=== PATIENT | female | born 1955 | race Caucasian/White ===

== ENCOUNTER 2018-07-02 17:01 | Outpatient (REF) | payer OTHER, SELFPAY ==
[2018-07-02 22:48] LABS: Cholesterol 218 mg/dL (50-200); HDL Cholesterol 109 mg/dL (40-60); LDL CHOLESTEROL 87 mg/dL (<100); Triglyceride 49 mg/dL (30-150)
[2018-07-04 11:20] LABS: Hepatitis C Ab w Rflx HCV PCR Negative (NEGAT)
== END 2018-07-02 17:21 ==
LOC: NCHCN 17:01
PROVIDERS: PCP Surgery; Visit Provider Nurse Practitioner Family
DX: Z00.00 Encounter for general adult medical examination without abnormal findings (principal); F41.8 Other specified anxiety disorders; N95.1 Menopausal and female climacteric states; E66.9 Obesity, unspecified; Z11.59 Encounter for screening for other viral diseases
CPT/HCPCS: 80061; 83721; 86803

== ENCOUNTER 2018-07-25 10:43 | Outpatient (CLI) | payer OTHER, SELFPAY ==
--- NOTE | 2018-07-25 16:04 | DI.MAMMO_ITS ---
SYMPTOM/DIAGNOSIS: SCREENING, Z12.39 MAMMOGRAMS: Mammograms were interpreted according to the usual protocol including computer analysis with CAD system, tomosynthesis and C view imaging. Comparison with prior examination. Breast density B. No suspicious masses or microcalcifications are seen. There is no definite evidence of malignancy. IMPRESSION: Negative mammogram. Routine screening is recommended. Category I. MQSA ASSESSMENT OF FINDINGS: Negative. Category 1. Patient will receive a letter notifying them of these results. BI-RADS category B. There are scattered areas of fibroglandular density.
== END 2018-07-25 11:03 ==
PROVIDERS: PCP Nurse Practitioner Family; Visit Provider Nurse Practitioner Family
DX: Z12.31 Encounter for screening mammogram for malignant neoplasm of breast (principal)
CPT/HCPCS: 77063; 77067

== ENCOUNTER 2019-07-29 18:50 | Outpatient (REF) | payer OTHER, SELFPAY ==
--- NOTE | 2019-07-29 17:00 | PAPFT_PTH ---
PATIENT: Claribel Restrepo [id number] AGE/SX: 64/F ROOM: RE07/29/[address]: Joy Capellan : 1955 BED: DIS: 07/29/2019 SPEC #: [id number] RECD: 07/30/19 12:54 STATUS: MANE RERubio #: [id number] ALISIA: 07/29/19 17:[address]: Joy Capellan DEPT: [facility] Cytology RECD BY: Adelina Sarah Tissues: 1 - CX/ENDOCX FOR PAP SMEARS Procedures: PAP THIN PREP/UVM Screening HPV DNA PROBE Comments: [id number]
[2019-07-29 21:38] LABS: Hemoglobin A1C 6.2 % (3.8-5.6)
[2019-07-29 21:46] LABS: Calculated LDL 109 mg/dL (<100); Cholesterol 214 mg/dL (<200); HDL Cholesterol 90 mg/dL (40-60); TSH (W/Ref FT4) 1.27 uIU/mL (0.36-3.74); Triglyceride 76 mg/dL (<150)
[2019-07-31 10:40] LABS: HIV-1/2 Ag & Ab Screen Negative (Negative)
== END 2019-07-29 19:10 ==
LOC: NCHCN 18:50
PROVIDERS: PCP Nurse Practitioner Family; Visit Provider Nurse Practitioner Family
DX: Z00.00 Encounter for general adult medical examination without abnormal findings (principal); N95.1 Menopausal and female climacteric states; R06.83 Snoring; M54.5 Low back pain; M19.049 Primary osteoarthritis, unspecified hand; E66.9 Obesity, unspecified; M72.2 Plantar fascial fibromatosis; Z11.4 Encounter for screening for human immunodeficiency virus [HIV]; Z12.4 Encounter for screening for malignant neoplasm of cervix; Z11.51 Encounter for screening for human papillomavirus (HPV); Z01.419 Encounter for gynecological examination (general) (routine) without abnormal findings
CPT/HCPCS: 80061; 87389; 88142; 83036; 84443; 87624

== ENCOUNTER 2020-03-09 01:11 | Outpatient (CLI) | payer OTHER, SELFPAY ==
--- NOTE | 2020-03-09 16:13 | DI.MAMMO_ITS ---
EXAM: MG MAMMO SCREENING CLINICAL HISTORY: SCREENING, Z12.39 TECHNIQUE: Bilateral full field digital CC and MLO mammographic images were obtained with 3D tomosyn thesis and utilizing computer aided detection (CAD). COMPARISON: Available for comparison. FINDINGS: Masses/Architectural Distortion: There is a new nodular density in the inferior left breast on the ML O view. Microcalcifications: No suspicious pleomorphic-type are seen. Skin Thickening/Nipple Retraction: None. IMPRESSION: 1. New nodular density inferior left breast on the MLO view. 2. This area should be further evaluated with a spot compression view. Ultrasound may be indicated a t that time. BI-RADS Category 0 - Assessment Incomplete: Need additional imaging evaluation Breast Density - Category B - Scattered areas of fibroglandular density Breast density category C or D implies that the patient has dense breast tissue. Dense breast tissue is very common and is not abnormal but dense breast tissue can make it harder to find cancer on a ma mmogram. Also, dense breast tissue may increase their breast cancer risk. This information about the result of the mammogram report was provided to the patient to raise their awareness. Use this report when you speak with the patient about their risks for breast cancer, which includes their family hist ory. At that time, you may recommend for more screening tests (Ultrasound or MRI) as they might be us eful based on their risk. A negative radiographic report should not delay biopsy if a dominant or clinically suspicious mass is present. Up to ten percent of cancers are not identified on mammography. A negative report may reinforce clinical impression. Adenosis and dense breasts may obscure an underlying neoplasm. False positive reports average 6 to 10%. Patient will receive a letter notifying them of these results.
== END 2020-03-09 01:31 ==
PROVIDERS: PCP Nurse Practitioner Family; Visit Provider Nurse Practitioner Family
DX: Z12.31 Encounter for screening mammogram for malignant neoplasm of breast (principal); R92.8 Other abnormal and inconclusive findings on diagnostic imaging of breast
CPT/HCPCS: 77063; 77067

== ENCOUNTER 2020-03-19 01:41 | Outpatient (CLI) | payer OTHER, SELFPAY ==
--- NOTE | 2020-03-19 | DI.US_ITS ---
EXAM: US BREAST LT LIMITED CLINICAL HISTORY: LEFT breast nodule. TECHNIQUE: Limited ultrasound of the left breast was performed. COMPARISON: Prior mammograms were reviewed. FINDINGS: There is no ultrasound finding left breast correspond to the small nodule seen inferiorly on the rece nt screening mammogram. Therefore is most probably benign tremor lymph node. IMPRESSION: No significant focal ultrasound findings, this implying that the nodule on the mammogram is probably benign lymph node. Appropriate follow-up is repeat left breast mammogram 6 months from now. BI-RADS Category 3 - 6 month - Probably Benign Finding: Recommend follow-up mammography in 6 months Breast Density - Category B - Scattered areas of fibroglandular density Breast density Category C or D implies that the patient has dense breast tissue. Dense breast tissue can make it harder to find cancer on a mammogram. Dense breast tissue is also associated with an incr eased risk of breast cancer. This information about the result of the mammogram report was provided to the patient to raise their awareness. Use this report when you speak with the patient about their risks for breast cancer, which includes their family history. At that time, you may recommend additional screening tests (Ultrasoun d or MRI) as these tests may add significant information. A negative radiographic report should not delay biopsy if a dominant or clinically suspicious mass is present. Up to ten percent of cancers are not identified on mammography. A negative report may reinforce clinical impression. Adenosis and dense breasts may obscure an underlying neoplasm. False positive reports average 6 to 10%. Patient will receive a letter notifying them of these results.
--- NOTE | 2020-03-19 | DI.MAMMO_ITS ---
EXAM: MG MAMMO SCREEN CALL BACK UNI-LEFT and left breast ultrasound CLINICAL HISTORY: F/U MAMMO, NEW NODULAR DENSITY LT BREAST. TECHNIQUE: Spot-compression MLO 3D view of the left breast was performed, this pursuant to finding o n screening mammogram 03/09/2020. We also performed left breast ultrasound. COMPARISON: Prior mammograms dating back to 2011, the most recent being 03/09/2020. FINDINGS: Spot-compression 3D view does not dissipate the recently described nodule. However, it has appearanc e of a probable benign lymph node. This was followed by targeted left breast ultrasound which revealed no evidence of solid or significa nt cystic lesion. IMPRESSION: Left breast nodule, not evident on ultrasound. I feel this is probably a benign intramammary lymph n ode. Appropriate follow-up is repeat left mammogram in 6 months, earlier if clinically indicated. BI-RADS Category 3 - 3 month - Probably Benign Finding: Recommend follow-up mammography in 3 months Breast Density - Category B - Scattered areas of fibroglandular density Breast density Category C or D implies that the patient has dense breast tissue. Dense breast tissue can make it harder to find cancer on a mammogram. Dense breast tissue is also associated with an incr eased risk of breast cancer. This information about the result of the mammogram report was provided to the patient to raise their awareness. Use this report when you speak with the patient about their risks for breast cancer, which includes their family history. At that time, you may recommend additional screening tests (Ultrasoun d or MRI) as these tests may add significant information. A negative radiographic report should not delay biopsy if a dominant or clinically suspicious mass is present. Up to ten percent of cancers are not identified on mammography. A negative report may reinforce clinical impression. Adenosis and dense breasts may obscure an underlying neoplasm. False positive reports average 6 to 10%. Patient will receive a letter notifying them of these results.
== END 2020-03-19 02:01 ==
PROVIDERS: PCP Nurse Practitioner Family; Visit Provider Nurse Practitioner Family
DX: R92.8 Other abnormal and inconclusive findings on diagnostic imaging of breast (principal)
CPT/HCPCS: 76642; 77063; 77067

== ENCOUNTER 2020-09-17 03:34 | Outpatient (CLI) | payer OTHER, SELFPAY ==
--- NOTE | 2020-09-17 15:06 | DI.MAMMO_ITS ---
Exam(s) MG MAMMO DIAGNOSTIC UNI EXAM: MG MAMMO DIAGNOSTIC UNI-LEFT CLINICAL HISTORY: DIAGNOSTIC, 6 MO F/U, F/U ABNL MAMMO, R92.8. TECHNIQUE: Unilateral spot mammographic images were obtained with 3D Tomosynthesistechnique and util izing computer aided detection (CAD). COMPARISON: Prior mammograms dating back to 2011, the most recent being February 2020. FINDINGS: This patient has now returned for follow-up of the cysts nodule seen inferiorly in the left breast on the mammogram February 2020. This was negative on ultrasound examination at that time. There is left breast mammogram again reveals the previously described nodule. It appears slightly sm aller possibly projectional. It exhibits a small notch and is therefore probably benign lymph node. No other significant mammographic findings Did not feel was necessary to repeat ultrasound examination. IMPRESSION: Stable benign finding in the left breast. Appropriate follow-up is to keep this patient yearly mammogram schedule, this implying the next [facility] mammogram would be in February 2021, with earlier imaging if a self detected breast change is not ed.. The patient was informed of the findings and follow-up recommendations prior to leaving the [facility] today. BI-RADS Category 2 - Benign Findings Breast Density - Category B - Scattered areas of fibroglandular density Breast density Category C or D implies that the patient has dense breast tissue. Dense breast tissue can make it harder to find cancer on a mammogram. Dense breast tissue is also associated with an incr eased risk of breast cancer. This information about the result of the mammogram report was provided to the patient to raise their awareness. Use this report when you speak with the patient about their risks for breast cancer, which includes their family history. At that time, you may recommend additional screening tests (Ultrasoun d or MRI) as these tests may add significant information. A negative radiographic report should not delay biopsy if a dominant or clinically suspicious mass is present. Up to ten percent of cancers are not identified on mammography. A negative report may reinforce clinical impression. Adenosis and dense breasts may obscure an underlying neoplasm. False positive reports average 6 to 10%. Patient will receive a letter notifying them of these results.
== END 2020-09-17 03:54 ==
PROVIDERS: PCP Nurse Practitioner Family; Visit Provider Nurse Practitioner Family
DX: R92.8 Other abnormal and inconclusive findings on diagnostic imaging of breast (principal)
CPT/HCPCS: 77061; 77065; G0279

== ENCOUNTER 2021-03-01 17:10 | Outpatient (REF) | payer OTHER, SELFPAY ==
[2021-03-02 09:24] LABS: COVID-19 RT-PCR UVMMC Result Positive (Negative)
== END 2021-03-01 17:11 | disposition home or self-care (01) ==
LOC: NCHCN 17:10
PROVIDERS: PCP Nurse Practitioner Family; Visit Provider Nurse Practitioner Family
DX: Z20.822 Contact with and (suspected) exposure to COVID-19 (principal)
CPT/HCPCS: U0003

== ENCOUNTER 2021-09-03 00:42 | Outpatient (CLI) | payer OTHER, SELFPAY ==
--- NOTE | 2021-09-03 | DI.RAD_ITS ---
Exam(s) XR HAND LT COMPLETE EXAM: XR HAND LT COMPLETE CLINICAL HISTORY: LT THUMB PAIN, M79.645. TECHNIQUE: 2D digital imaging was performed of the left hand. Three views were obtained. AP, later al and oblique views were obtained. COMPARISON: No exams were available for comparison FINDINGS: BONES: No acute fracture is present. No bony destructive lesion is seen. JOINTS: No dislocation present. Hypertrophic changes are seen at the interphalangeal joint of the heriberto mb and fingers. The metacarpophalangeal joints are well maintained.. SOFT TISSUE: Normal. IMPRESSION: Moderate degenerative changes of the hand. DATA REPOSITORY: RADIATION DOSE DELIVERED:
--- OUTSIDE RECORDS SUMMARY | 2021-09-03 00:46 | XMS_ITS ---
:1955 Author Care Team Providers Name Role Phone DR. KAILASH SALAZAR Primary Care Provider [phone] DR. KAILASH SALAZAR Referring Provider [phone] Allergies Code Code System Name Reaction Severity Status Onset NKDA ? Medications Name Status Start Date Stop Date ? ? Aleve 220 mg tablet Active ? Not availabl e Take 1 tablet every 12 hours by oral route as needed. sertraline 100 mg tablet Active ? Not alva ilable Take 1 tablet every day by oral route. Problems Name Status Onset Date Source ? Obesity Active 10/13/2016 ? Depressive Disorder Active 10/13/2016 ? Skin Lesion Active 10/13/2016 ? Low Back Pain Active 10/13/2016 ? Snoring Active 10/13/2016 ? Bunion Active 10/13/2016 ? 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 Procedures Date Name Performed by ? 10/20/2016 XR, Foot, 3 or More View DO Not Use [facility] [address], [place] [id number] (Work Place) 12/08/2016 XR, Foot DO Not Use [facility] [address], [place] [id number] (Work Place) Results Lab Results None recorded. Past Encounters None recorded. Social History Tobacco Smoking Status Never Smoker Notes: 12/29/16 Vaccine List Vaccine Type Tdap 04/02/2010 Plan of Care Reminders Provider Appointments None recorded. ? ? Lab None recorded. ? ? Referral None recorded. ? ? Procedures None recorded. ? ? Surgeries None recorded. ? ? Imaging None recorded. ? ? Vitals 02/22/2017 04:15PM FOLLOW UP Weight Blood Pressure 77.11 kg 128/62 mm[Hg] 01/19/2017 01:15PM PODIATRY POST-OP 1 Weight Blood Pressure 77.11 kg 116/68 mm[Hg] 12/29/2016 09:45AM FOLLOW UP Weight Blood Pressure 77.11 kg 124/62 mm[Hg] 12/08/2016 01:15PM PODIATRY POST OP 2 Weight Blood Pressure 77.11 kg 104/54 mm[Hg] 12/01/2016 09:45AM PODIATRY POST-OP 1 Blood Pressure 124/64 mm[Hg] 11/09/2016 04:00PM FOLLOW UP Weight Blood Pressure 77.11 kg 120/64 mm[Hg] 10/20/2016 04:15PM NEW PATIENT Weight Blood Pressure 77.11 kg 124/62 mm[Hg]
--- OUTSIDE RECORDS SUMMARY | 2021-09-03 00:46 | XMS_ITS | Clinical Summary ---
:1955 Author Organization [facility] Address [address] [place] [address] Care Team Providers Name Role Phone Mirian Olivares BROADCAST NEWS PRODUCER Primary Care Provider Social History Tobacco Use Types Packs/Day Years Used Date Never Assessed Sex Assigned at Date Recorded Not on file Plan of Treatment Health Maintenance Due Date Last Done Comments Fall Risk Screening 06/09/2020 Care Teams Cartridge Maker Relationship Specialty Start Date End Date Mirian Olivares NP PCP - General 09/28/16
--- OUTSIDE RECORDS SUMMARY | 2021-09-03 00:47 | XMS_ITS | Encounter Summary ---
:1955 Author Organization [facility] Address [address] [place] [address] Care Team Providers Name Role Phone Unknown, Provider Primary Care Provider Encounter Details Date Type Department Care Team Description 09/26/2016 Hospital Encounter [facility] Unknown, Provider, [facility] [phone] [place] [address] (Work) [phone] Social History Tobacco Use Types Packs/Day Years Used Date Never Assessed Sex Assigned at Date Recorded Not on file documented as of this encounter Discharge Disposition Disposition Code Departure Means Destination Home or Self [facility] documented in this encounter Plan of Treatment Not on filedocumented as of this encounter Visit Diagnoses Not on filedocumented in this encounter Care Teams Banding Machine Operator Relationship Specialty Start Date End Date Unknown, Provider, PCP - General 01/02/15 09/27/16 documented as of this encounter
--- OUTSIDE RECORDS SUMMARY | 2021-09-03 00:47 | XMS_ITS | Encounter Summary ---
:1955 Author Organization [facility] Address [address] [place] [address] Care Team Providers Name Role Phone Unavailable Primary Care Provider Unavailable Encounter Details Date Type Department Care Team Description 09/12/2014 Results Only [facility] Niurka Mendez, [facility] [phone] [facility] [place] [address] (Wo rk) Social History Tobacco Use Types Packs/Day Years Used Date Never Assessed Sex Assigned at Date Recorded Not on file documented as of this encounter Plan of Treatment Not on filedocumented as of this encounter Procedures Procedure Name Priority Date/Time Associated Diagnosis Comme nts PAP TEST- RESULT Routine 09/12/2014 0:00 EDT Resu lts for this ONLY procedure are i n the results section. documented in this encounter Results PAP TEST- RESULT ONLY (09/12/2014 0:00 EDT) Pathology Report: CYTOPATHOLOGY REPORT [facility] Reports generated via electronic interface contain heather ginal data; SERVICES however they are lacking the format of the original re port. Caution should be taken when reading/interpreting unfo rmatted reports. Name: ? JESUS, THERE SA ? Accession #: ? [id number] ? : ? 1955 (Age: [age]) ??F ?Collect Date: ? 09/12/2014 ? Location: ? [facility] ? Receive Date: ? 09/16/19 15 ? Provider: NIURKA WINSLOW PLATE SHEAR OPERATOR Copy to: MARTITA RODRIGUES MD ? Final Report SPECIMEN ADEQUACY ? Satisfactory for Evaluation - transformation zone component present - scant squamous epithelial component secondary to exc essive inflammation GENERAL CATEGORIZATION ? Negative for Intraepithelial Lesion or Malignan cy ?? Last Menstrual Period: 2002 Specimen/Source: ??Pap Test, Cervix/Endocervix, ThinPr ep Imaging System with manual evaluation Document reviewed and electronically signed by: ? Armando Salazar, MOOKIE(ASCP) ? Report ??Date: 09/18/2014 09:49 HPV with Pap Test ? Date Ordered: ? 09/18/2014 ? Status: ?? Signed Out ?Date Complete: ? 09/22/2014 ? By: ??Sys tem Interface ? Date Reported: ? 09/22/2014 ? Interpretation RESULT: Negative for HPV. No E6 or E7 mRNA is detected from HPV types 16,18,31,3 3,35, 39,45,51,52,56,58,59,66, and 68 by compressor station engineer chief media roxanne amplification. Comments Document reviewed and electronically signed by: ? System Interface ? Report date: 09/22/2014 By the signature above, the attending physician certif ies that he/she has personally conducted a gross and/or microscopic examin ation of the described specimens and rendered or confirmed the above diagnosi s. End of Report Specimen Performing Organization Address City/State/ZIP Code Phon e Number [facility] [address] [place] [address] SERVICES documented in this encounter Visit Diagnoses Not on filedocumented in this encounter
--- OUTSIDE RECORDS SUMMARY | 2021-09-03 00:47 | XMS_ITS | Encounter Summary ---
:1955 Author Organization [facility] Address [address] [place] [address] Care Team Providers Name Role Phone Mirian Olivares COMPLIANCE ASSISTANT Primary Care Provider Encounter Details Date Type Department Care Team Description 07/30/2019 Lab Requisition [facility] Outr Resulting Lab, Pathology & Laboratory Provider [facility] [address] [phone] Social History Tobacco Use Types Packs/Day Years Used Date Never Assessed Sex Assigned at Date Recorded Not on file documented as of this encounter Plan of Treatment Not on filedocumented as of this encounter Procedures Procedure Name Priority Date/Time Associated Comments Diagnosis HIV 1/2 ANTIGEN AND Routine 07/29/2019 17:14 Resu lts for this ANTIBODY, 4TH EDT procedure are in GENERATION the results section. documented in this encounter Results HIV 1/2 ANTIGEN AND ANTIBODY, 4TH GENERATION (07/29/2019 17:14 EDT) HIV 1 and 2 Negative Negative [facility] Antibody/p24 Comment: LABORATORY Antigen, 4th SERVICES Generation If acute HIV-1 infection is suspected in a high risk ??patient, submit plasma specimen for HIV-1 RNA quantitation test. Fourth Generation assay performed on the Siemens [facility]. Specimen Blood - Venous blood (substance) Performing Organization Address City/State/ZIP Code Phon e Number [facility] [address] [place] [address] SERVICES documented in this encounter Visit Diagnoses Not on filedocumented in this encounter Additional Health Concerns Infection Onset Date Last Indicated Resolved Time COVID-19 03/01/2021 03/01/2021 03/21/2021 22:15 EST documented as of this encounter Care Teams Vp Clinical Relationship Specialty Start Date End Date Mirian Olivares NP PCP - General 09/28/16 documented as of this encounter
--- OUTSIDE RECORDS SUMMARY | 2021-09-03 00:47 | XMS_ITS | Encounter Summary ---
:1955 Author Organization [facility] Address [address] [place] [address] Care Team Providers Name Role Phone Unavailable Primary Care Provider Unavailable Encounter Details Date Type Department Care Team Description 10/26/2011 Results Only [facility] Isha Shelton NP Laboratory Services - [address] [phone] Social History Tobacco Use Types Packs/Day Years Used Date Never Assessed Sex Assigned at Date Recorded Not on file documented as of this encounter Plan of Treatment Not on filedocumented as of this encounter Procedures Procedure Name Priority Date/Time Associated Diagnosis Comme nts PAP TEST- RESULT Routine 10/26/2011 0:00 EDT Resu lts for this ONLY procedure are i n the results section. documented in this encounter Results PAP TEST- RESULT ONLY (10/26/2011 0:00 EDT) Pathology Report: CYTOPATHOLOGY REPORT [facility] Reports generated via electronic interface contain heather ginal data; however they are lacking the format of the original re port. Caution should be taken when reading/interpreting unfo rmatted reports. Name: ? COURTNEY LEE SA ? Accession #: ? [id number] ? : ? 1955 (Age: 56) ??F ?Collect Da te: ? 10/26/2011 ? Location: ? [facility] ? Receive Date: ? 012 ? Provider: ISHA SHELTON FOOD PREPARATION WORKER Copy to: ? Final Report SPECIMEN ADEQUACY ? Satisfactory for Evaluation - assessment of transformation zone component not appl icable ( e.g. atrophy, vaginal sample, hysterectomy) - scant squamous epithelial component GENERAL CATEGORIZATION ? Negative for Intraepithelial Lesion or Malignan cy ?? Specimen/Source: ??Pap Test, Cervix/Endocervix, ThinPr ep Imaging System with manual evaluation Document reviewed and electronically signed by: ? Sammie Leos, CT(ASCP) ? Report ??Date: 11/03/2011 08:43 HPV with Pap Test ? Date Ordered: ? 11/03/2011 ? Status: ?? Signed Out ?Date Complete: ? 11/07/2011 ? By: ??S ystem Interface ? Date Reported: ? 11/07/2011 ? Interpretation RESULT: Negative for HPV. No E6 or E7 mRNA is detected from HPV types 16,18,31,3 3,35, 39,45,51,52,56,58,59,66, and 68 by curriculum designer media roxanne amplification. Comments Document reviewed and electronically signed by: ? System Interface ? Report date: 11/07/2011 By the signature above, the attending physician certif ies that he/she has personally conducted a gross and/or microscopic examin ation of the described specimens and rendered or confirmed the above diagnosi s. End of Report Specimen Performing Organization Address City/State/ZIP Code Phon e Number [facility] [address] [phone] SERVICES [facility] [address] [place] [address] documented in this encounter Visit Diagnoses Not on filedocumented in this encounter
--- OUTSIDE RECORDS SUMMARY | 2021-09-03 00:47 | XMS_ITS | Encounter Summary ---
:1955 Author Organization [facility] Address [address] [place] [address] Care Team Providers Name Role Phone Unavailable Primary Care Provider Unavailable Encounter Details Date Type Department Care Team Description 11/19/[address] [facility] Mariajose Hyman MD [facility] [address] [place] [phone] (Wo rk) Social History Tobacco Use Types Packs/Day Years Used Date Never Assessed Sex Assigned at Date Recorded Not on file documented as of this encounter Plan of Treatment Not on filedocumented as of this encounter Procedures Procedure Name Priority Date/Time Associated Diagnosis Comme nts CYTOPATHOLOGY Routine 11/19/2002 0:00 EDT Results for this procedure are i n the results section . documented in this encounter Results CYTOPATHOLOGY (11/19/2002 0:00 EDT) Pathology Report: CYTOPATHOLOGY REPORT [facility] Reports generated via electronic interface contain heather ginal data; however they are lacking the format of the original re port. Caution should be taken when reading/interpreting unfo rmatted reports. Name: ? CLARIBEL LEE ? Accession #: ? [id number] : ? 1955 (Age: 47) ??F ?Collect Date: ? 10/23 Location: ? [facility] ? Receive Date : ? 11/21/2002 Provider: ?MARIAJOSE RODRIGUES MD Copy to: ? Specimen/Source: ?ThinPrep Pap Test, Endocer vix Last Menstrual Period: ? 05/23 Other: ? HPVA - HPV testing requested if ASC-US on the current ThinPrep Pap test. ? SPECIMEN ADEQUACY ? Unsatisfactory for Evaluation, - insufficient numbers of squamous epith elial cells (less than 10% of expected cellularity) - sample preparation compromised by excessive inflamma tion GENERAL CATEGORIZATION ? Specimen processed and examined, but unsatisfac tory for evaluation of epithelial abnormality. Recommend repeat Pap test or further follow up, as cli nically indicated. ? Document reviewed and electronically signed by: ? MOOKIE Daniels(ASCP) ? Report Date: ??11/27/2002 09:50 End of Report Specimen Performing Organization Address City/State/ZIP Code Phon e Number [facility] [address] [place] [address] SERVICES [facility] [address] [place] [address] documented in this encounter Visit Diagnoses Not on filedocumented in this encounter
--- OUTSIDE RECORDS SUMMARY | 2021-09-03 00:47 | XMS_ITS | Encounter Summary ---
:1955 Author Organization [facility] Address [address] [place] [address] Care Team Providers Name Role Phone Unknown, Provider Primary Care Provider Encounter Details Date Type Department Care Team Description 09/26/2016 Results Only [facility]- Terrell Scales, [address] [place], [place] [id number] (Wo rk) Social History Tobacco Use Types Packs/Day Years Used Date Never Assessed Sex Assigned at Date Recorded Not on file documented as of this encounter Plan of Treatment Not on filedocumented as of this encounter Procedures Procedure Name Priority Date/Time Associated Diagnosis Comme [facility] SURGICAL PATHOLOGY Routine 09/26/2016 10:05 Resul ts for this EDT procedure are i n the results section. documented in this encounter Results SURGICAL PATHOLOGY (09/26/2016 10:05 EDT) Pathology Report: SURGICAL PATHOLOGY REPORT [facility] Reports generated via electronic interface contain heather ginal data; LABORATORY however they are lacking the format of the original re port. SERVICES Caution should be taken when reading/interpreting unfo rmatted reports. Name: ? COURTNEY LEE SA ? Accession #: ? [id number] ? : ? 1955 (Age: [age]) ??F ? Collect Date: ? 09/26/2016 ? Location: ? [facility] ? Receive Date: ? 7 ? Provider: TERRELL FERRARO DO Copy to: KAILASH SALAZAR REEFER TRUCK DRIVER ? Final Pathologic Diagnosis: A. ??SKIN OF CHEEK, RIGHT INFERIOR, SHAVE BIOPSY: - Seborrheic keratosis. ?? B. ??SKIN OF CHEEK, RIGHT SUPERIOR, SHAVE BIOPSY: - Seborrheic keratosis. ?? Microscopic Description: The stratum corneum is thickened by laminated orthohyp erkeratosis. ??The epidermis is hyperplastic wi th papillomatosis and acanthosis. ??The keratinocytes have a basaloid appearance with round regular nuclei. ??(Dr. Cabrera)/ljn Document reviewed and electronically signed by: FATOUMATA CABRERA MD Report ??Date: 09/28/2016 15:39 By the signature above, the attending physician certif ies that he/she has personally conducted a gross and/or microscopic examin ation of the described specimens and rendered or confirmed the above diagnosi s. Specimen(s) Received: A. ?Right cheek inferior B. ? Right cheek superior Clinical History: Enlarging pigmented skin lesions; clinical diagnosis c ode: D49.2 Gross Description: A. ?Received in formalin labelled with proper p atient identification (initials P, T) and right cheek inferior is a shave biopsy of bee-pink to brown variegated skin (0.5 x 0.3 x 0.1 cm). Bisected a nd submitted in A1. B. ?Received in formalin labelled with proper p atient identification (initials P, T) and right cheek superior is a shave biopsy of bee-pink granular skin (0.5 x 0.5 x 0.1 cm). Bisected and submi tted in B1. MARIA DEL CARMEN Stearns (ASCP) 09/27/2016 11:44 AM End of Report Specimen Performing Organization Address City/State/ZIP Code Phon e Number [facility] [address] [place] [address] SERVICES documented in this encounter Visit Diagnoses Not on filedocumented in this encounter Care Teams Barn Operator Relationship Specialty Start Date End Date Unknown, Provider, PCP - General 01/02/15 09/27/16 documented as of this encounter
--- OUTSIDE RECORDS SUMMARY | 2021-09-03 00:47 | XMS_ITS | Encounter Summary ---
:1955 Author Organization [facility] Address [address] [place] [address] Care Team Providers Name Role Phone Mirian Reaves FRONT FACER Primary Care Provider Encounter Details Date Type Department Care Team Description 11/01/2016 Results Only [facility]- Violet Sheehan MD [phone] [address] [place] [address] Social History Tobacco Use Types Packs/Day Years Used Date Never Assessed Sex Assigned at Date Recorded Not on file documented as of this encounter Plan of Treatment Not on filedocumented as of this encounter Procedures Procedure Name Priority Date/Time Associated Diagnosis Comme nts SURGICAL PATHOLOGY Routine 11/01/2016 18:16 Resul ts for this EDT procedure are i n the results section. documented in this encounter Results SURGICAL PATHOLOGY (11/01/2016 18:16 EDT) Pathology Report: SURGICAL PATHOLOGY REPORT [facility] Reports generated via electronic interface contain heather ginal data; LABORATORY however they are lacking the format of the original re port. SERVICES Caution should be taken when reading/interpreting unfo rmatted reports. Name: ? COURTNEY LEE SA ? Accession #: ? [id number] ? : ? 1955 (Age: 6 1) ??F ? Collect Date: ? 11/01/2016 ? Location: ? [facility] ? Receive Date: ? 11/02/19 17 ? Provider: VIOLET MATA MD Copy to: FABIANO REAVES FRONT FACER ? Final Pathologic Diagnosis: ENDOMETRIUM, BIOPSY: - Scant superficial strips of inactive endometrium. ?? See comment. - Fragments of benign endocervical tissue and abundant mucus. Comment: Deeper levels have been reviewed. Dr. Shine 11/03/2016 10:39 AM Document reviewed and electronically signed by: MARIO SHINE MD Report ??Date: 11/04/2016 13:37 By the signature above, the attending physician certif ies that he/she has personally conducted a gross and/or microscopic examin ation of the described specimens and rendered or confirmed the above diagnosi s. Specimen(s) Received: Endometrial bx Clinical History: Postmenopausal bleeding Gross Description: ? Received in formalin labelled with proper patient identification (initials P, T) and endometrial bx i s an aggregate of clear colorless mucinous material small fragments of red-brown tissue (2.5 x 1.5 x 0.3 cm). Submitted in toto in blocks 1 and 2. MARIA DEL CARMEN Garcia (ASCP) 11/02/2016 8:06 AM End of Report Specimen Performing Organization Address City/State/ZIP Code Phon e Number [facility] [address] [place] [address] SERVICES documented in this encounter Visit Diagnoses Not on filedocumented in this encounter Care Teams [employer] Mainspring Former Relationship Specialty Start Date End Date Mirian Reaves NP PCP - General 09/28/16 documented as of this encounter
--- OUTSIDE RECORDS SUMMARY | 2021-09-03 00:47 | XMS_ITS | Encounter Summary ---
:1955 Author Organization [facility] Address [address] [place] [address] Care Team Providers Name Role Phone Mirian Olivares GRAVITY METER OBSERVER Primary Care Provider Encounter Details Date Type Department Care Team Description 03/01/2021 Lab Requisition [facility] Outr Resulting Lab, Pathology & Laboratory Provider [facility] [address] [id number] Social History Tobacco Use Types Packs/Day Years Used Date Never Assessed Sex Assigned at Date Recorded Not on file documented as of this encounter Plan of Treatment Not on filedocumented as of this encounter Procedures Procedure Name Priority Date/Time Associated Diagnosis Comme nts COVID-19 TEST [facility] Today 03/01/2021 10:40 LAB PCR EST COVID-19 TESTING Routine 03/01/2021 10:40 Results for this EST procedure are i n the results section. documented in this encounter Results COVID-19 TEST [facility] LAB PCR (03/01/2021 10:40 EST) Specimen Swab Performing Organization Address City/State/ZIP Code Phon e Number [facility] [address] [place] [address] SERVICES (ABNORMAL) COVID-19 TESTING (03/01/2021 10:40 EST) COVID-19 rt-PCR Positive (AA) Negative [facility] Result Comment: LABORATORY This test has not been FDA c leared or approved. This test has been authorized by FDA under an EUA for use by authorized laboratories. This test has been authorized only for detection of nucleic acid fro SERVICES m 2018-nCo, not for any oth er viruses or pathogens. This test is only authorized for the duration of the declaration that circumstances exist justifying the authorization of emergency use of in vitro d iagnostic tests for detectio n and/or diagnosis of 2019-nCoV under section 564(b)(1) of Act, 21 U.S.C ?? 360bbb-3(b) (1), unless the authorization is terminated or revoked sooner. Performed on the [employer] Fusion instrument Performing Lab [place] [facility] Lab [facility] SERVICES Specimen Swab Performing Organization Address City/State/ZIP Code Phon e Number [facility] [address] [place] [address] SERVICES documented in this encounter Visit Diagnoses Not on filedocumented in this encounter Additional Health Concerns Infection Onset Date Last Indicated Resolved Time COVID-19 03/01/2021 03/01/2021 03/21/2021 22:15 EST documented as of this encounter Care Teams Mining Teacher Relationship Specialty Start Date End Date Mirian Olivares NP PCP - General 09/28/16 documented as of this encounter
--- OUTSIDE RECORDS SUMMARY | 2021-09-03 00:47 | XMS_ITS | Encounter Summary ---
:1955 Author Organization [facility] Address [address] [place] [address] Care Team Providers Name Role Phone Unavailable Primary Care Provider Unavailable Encounter Details Date Type Department Care Team Description 01/28/2009 Orders Only [facility] Bonnie Shelton NP Services - [place] [address] [address] Social History Tobacco Use Types Packs/Day Years Used Date Never Assessed Sex Assigned at Date Recorded Not on file documented as of this encounter Plan of Treatment Not on filedocumented as of this encounter Procedures Procedure Name Priority Date/Time Associated Comments Diagnosis HPV DETECTION, HIGH Routine 01/28/2009 10:42 Resu lts for this RISK TYPES EST procedure are i n the results section. CYTOPATHOLOGY Routine 01/28/2009 0:00 Results for this EST procedure are i n the results section. documented in this encounter Results HUMAN PAPILLOMA VIRUS DNA TEST (01/28/2009 10:42 EST) Specimen Description Cervix, ThinPrep [facility] vial LAB Result This specimen had inadequate cells for cytologic interpretation. Negative results of HPV [facility] testing should be interprete d with caution. If clinicallyindicated, please consider submission LAB of an additional specimen. Negative for HPV types 16, 18, 31, 33, 3 5, 39, 45, 51, 52, 56, 58, 59, and 68. Report Status Final [facility] 02/11/2009 LAB Specimen Performing Organization Address City/State/ZIP Code Phon e Number [facility] [address] [place] [address] SERVICES [facility] [address] [place] [address] CYTOPATHOLOGY (01/28/2009 0:00 EST) Pathology Report: CYTOPATHOLOGY REPORT ? [facility] ? LAB Reports generated via electr [employer] interface contain original data; ? however they are lacking the format of the original report. ? Caution should be taken when reading/interpreting unformatted reports. ? Name: ? JESUS, THERE SA ? Accession #: ? [id number] ? : ? 1955 (Age: 53) ??F ?Collect Date: ? 01/28/2009 ? Location: ? [facility] ? Receive Date: ? 01/29/2009 ? Provider: ?KARAN M RO WLETT JUDICIAL ASSISTANT ? Copy to: ? Specimen/Source: ? Pap Test, Cervix/Endocervix, ThinPrep Imaging System ? with manual evaluation ? Last Menstrual Period: ? 2003 ? Other: ? HPVDX - HPV testing requeste d regardless of diagnosis on current ThinPrep Pap ?? test. ? SPECIMEN ADEQUACY ? Unsatisfactory for Ev aluation, ? - insufficient numbers of sq uamous epithelial cells (less than 10% of expected ?? cellularity) ? - sample preparation comprom ised by excessive mucus ? GENERAL CATEGORIZATION ? Specimen processed an d examined, but unsatisfactory for evaluation of ? epithelial abnormality. ? Recommend repeat Pap test or further follow up, as clinically indicated. ? Document reviewed and electr onically signed by: ? MOOKIE Frias(ASCP ) ? Report Date: ??12/15/ 2009 16:04 ? End of Report ? Specimen Performing Organization Address City/State/ZIP Code Phon e Number [facility] [address] [phone] SERVICES [facility] [address] [place] [address] documented in this encounter Visit Diagnoses Not on filedocumented in this encounter
--- OUTSIDE RECORDS SUMMARY | 2021-09-03 00:47 | XMS_ITS | Encounter Summary ---
:1955 Author Organization [facility] Address [address] [place] [address] Care Team Providers Name Role Phone Unavailable Primary Care Provider Unavailable Encounter Details Date Type Department Care Team Description 11/17/2003 Results Only [facility] - Cecilio Gutiérrez NP conversion [address] [place] [address] [place], [place] [id number] [phone] Social History Tobacco Use Types Packs/Day Years Used Date Never Assessed Sex Assigned at Date Recorded Not on file documented as of this encounter Plan of Treatment Not on filedocumented as of this encounter Procedures Procedure Name Priority Date/Time Associated Comments Diagnosis HPV DETECTION, HIGH Routine 11/17/2003 9:33 Resul ts for this RISK TYPES EDT procedure are i n the results section. CYTOPATHOLOGY Routine 11/17/2003 0:00 Results for this EDT procedure are i n the results section. documented in this encounter Results HUMAN PAPILLOMA VIRUS DNA TEST (11/17/2003 9:33 EDT) Specimen Description Cervix, ThinPrep [facility] vial Result Negative for HPV [facility] LAB types 16, 18, 31, 33, 35, 39, 45, 51, 52, 56, 58, 59, and 68. Report Status Final [facility] [id number] Specimen Performing Organization Address City/State/ZIP Code Phon e Number [facility] [address] [place] [address] SERVICES [facility] [address] [place] [address] CYTOPATHOLOGY (11/17/2003 0:00 EDT) Pathology Report: CYTOPATHOLOGY REPORT [facility] Reports generated via electronic interface contain heather ginal data; however they are lacking the format of the original re port. Caution should be taken when reading/interpreting unfo rmatted reports. Name: ? JESUS CLARIBEL ? Accession #: ? [id number] : ? 1955 (Age: 48) ??F ?Collect Date: ? 10/22 Location: ? [facility] ? Receive Date : ? 11/20/2003 Provider: ?CECILIO SR ARTIFICIAL INTELLIGENCE SPECIALIST Copy to: ? Specimen/Source: ?ThinPrep Pap Test, Cervix/ Endocervix Last Menstrual Period: ? 1 Year Other: ? HPVDX - HPV testing requested regardless of diag nosis on current ThinPrep Pap test. ? SPECIMEN ADEQUACY ? Satisfactory for Evaluation - assessment of transformation zone component not appl icable ( e.g. atrophy, vaginal sample, hysterectomy) GENERAL CATEGORIZATION ? Negative for Intraepithelial Lesion or Malignan cy INTERPRETATION ? Reactive cellular magdalena nges associated with inflammation present (includes repair). ? Document reviewed and electronically signed by: ? JASSON SALGADO MD ? Report Date: ??11/26/2003 13:14 End of Report Specimen Performing Organization Address City/State/ZIP Code Phon e Number [facility] [address] [place] [address] SERVICES [facility] [address] [place] [address] documented in this encounter Visit Diagnoses Not on filedocumented in this encounter
== END 2021-09-03 01:02 ==
LOC: DI 00:42
PROVIDERS: PCP Nurse Practitioner Family; Visit Provider Family Medicine
DX: M79.645 Pain in left finger(s) (principal)
CPT/HCPCS: 73130

== ENCOUNTER 2022-02-08 01:09 | Outpatient (CLI) | payer MEDICARE, SELFPAY ==
--- NOTE | 2022-02-08 | DI.RAD_ITS ---
Exam(s) XR HIP RT COMPLETE AP PELVIS EXAM: XR HIP RT COMPLETE AP PELVIS CLINICAL HISTORY: RT HIP PAIN, M25.551. TECHNIQUE: 2D digital imaging was performed. COMPARISON: No exams were available for comparison FINDINGS: Two views: No evidence of pelvic nor hip fracture. No hip joint space narrowing. On the lateral view of the ri ght hip there is small osteophyte at the margin of the femoral head. No osseous lesions. Sacroiliac joints unremarkable. IMPRESSION: Mild degenerative changes right hip. DATA REPOSITORY: RADIATION DOSE DELIVERED:
== END 2022-02-08 01:29 ==
LOC: DI 01:10
PROVIDERS: PCP Nurse Practitioner Family; Visit Provider Nurse Practitioner Family
DX: M16.11 Unilateral primary osteoarthritis, right hip (principal)
CPT/HCPCS: 73502

== ENCOUNTER 2022-02-17 02:10 | Outpatient (CLI) | payer MEDICARE, SELFPAY ==
[2022-02-17 09:56] LABS: Hemoglobin A1C 6.3 % (<5.7)
[2022-02-17 10:06] LABS: Calculated LDL 123 mg/dL (<100); Cholesterol 231 mg/dL (<200); HDL Cholesterol 99 mg/dL (40-60); Triglyceride 48 mg/dL (<150)
== END 2022-02-17 02:11 | disposition home or self-care (01) ==
LOC: LBO 02:10
PROVIDERS: PCP Nurse Practitioner Family; Visit Provider Nurse Practitioner Family
DX: E78.5 Hyperlipidemia, unspecified (principal); R73.03 Prediabetes; E66.9 Obesity, unspecified
CPT/HCPCS: 36415; 80061; 83036

== ENCOUNTER 2022-04-26 02:29 | Outpatient (CLI) | payer MEDICARE, SELFPAY ==
--- NOTE | 2022-04-26 | DI.MAMMO_ITS ---
Exam(s) MAMMO SCREENING EXAM: MAMMO SCREENING CLINICAL HISTORY: SCREENING, Z12.39, FAMILY HX BREAST CA. TECHNIQUE: Bilateral full field digital CC and MLO mammographic images were obtained with 3D tomosyn thesis and utilizing computer aided detection (CAD). COMPARISON: Prior mammograms were reviewed. FINDINGS: There has been no significant change in the appearance and distribution of the fibroglandular tissue. There are no new spiculated masses nor malignant appearing microcalcification groups. There is no significant architectural distortion nor skin thickening-retraction. IMPRESSION: No radiographic evidence of malignancy. BI-RADS Category 1 - Negative Breast Density - Category B - Scattered areas of fibroglandular density Breast density Category C or D implies that the patient has dense breast tissue. Dense breast tissue can make it harder to find cancer on a mammogram. Dense breast tissue is also associated with an incr eased risk of breast cancer. This information about the result of the mammogram report was provided to the patient to raise their awareness. Use this report when you speak with the patient about their risks for breast cancer, which includes their family history. At that time, you may recommend additional screening tests (Ultrasoun d or MRI) as these tests may add significant information. A negative radiographic report should not delay biopsy if a dominant or clinically suspicious mass is present. Up to ten percent of cancers are not identified on mammography. A negative report may reinforce clinical impression. Adenosis and dense breasts may obscure an underlying neoplasm. False positive reports average 6 to 10%. Patient will receive a letter notifying them of these results.
--- NOTE | 2022-04-26 | DI.DEXA_ITS ---
Exam(s) XR DEXA BONE DENSITY W/WO RONY EXAM: XR DEXA BONE DENSITY W/WO RONY CLINICAL HISTORY: POSTMENOPAUSAL STATE, Z78.0 TECHNIQUE: Routine DEXA evaluation of the lumbar spine, hip, or forearm. COMPARISON: No exams were available for comparison FINDINGS: Performed on a Hologic unit. Lateral image: No compression fracture evident. Lumbar Spine total T-score: -1.2 Hip total T-score:-0.9 Independent reading at the level of the femoral neck yields T-score of -0.4 Forearm total T-score: -0.9 IMPRESSION: Bone mineral density measures in the osteopenia range. Fracture risk is moderate. Note: Any spine fracture indicates 5x risk for subsequent spine fracture and 2x risk for subsequent h ip fracture. World Health Organization criteria for BMD interpretation classify patients: Normal...... T- Score at or above -1.0 Osteopenic... T- Score between -1.0 and -2.5 Osteoporosis... T-Score at or below -2.5
== END 2022-04-26 02:49 ==
LOC: DI 02:29
PROVIDERS: PCP Nurse Practitioner Family; Visit Provider Nurse Practitioner Family
DX: Z78.0 Asymptomatic menopausal state (principal); M85.88 Other specified disorders of bone density and structure, other site; Z12.31 Encounter for screening mammogram for malignant neoplasm of breast; Z80.3 Family history of malignant neoplasm of breast
CPT/HCPCS: 77063; 77067; 77080

== ENCOUNTER 2022-05-27 17:29 | Outpatient (REF) | payer MEDICARE, SELFPAY ==
[2022-05-27 15:09] LABS: Source Nasal/Nares
[2022-05-27 16:17] LABS: COVID-19 PCR Negative (Negative)
== END 2022-05-27 17:30 | disposition home or self-care (01) ==
LOC: LBN 17:29
PROVIDERS: PCP Nurse Practitioner Family; Visit Provider Physician Assistant Medical
DX: J02.0 Streptococcal pharyngitis (principal); R05.8 Other specified cough; Z20.822 Contact with and (suspected) exposure to COVID-19
CPT/HCPCS: 87635

== ENCOUNTER 2023-02-21 14:34 | Outpatient (REF) | payer MEDICARE, SELFPAY ==
[2023-02-21 16:06] LABS: Vitamin D 25 Total 38.3 ng/mL (30-100)
== END 2023-02-21 14:35 | disposition home or self-care (01) ==
LOC: NCHCN 14:34
PROVIDERS: PCP Nurse Practitioner Family; Visit Provider Nurse Practitioner Family
DX: R73.03 Prediabetes (principal); M85.88 Other specified disorders of bone density and structure, other site
CPT/HCPCS: 82306; 83036

== ENCOUNTER → 2023-02-21 19:36 | Outpatient (CLI) | payer MEDICARE, SELFPAY ==
--- NOTE | 2023-02-21 16:34 | DI.RAD_ITS ---
Exam(s) XR THUMB LT EXAM: XR THUMB LT CLINICAL HISTORY: M79.645 Pain in left finger,thumb. TECHNIQUE: 2D digital imaging was performed. Three views. COMPARISON: Left hand stiff teen September 10 FINDINGS: BONES: No acute fracture is present. No bony destructive lesion is seen. JOINTS: No dislocation present. Degenerative changes noted at the interphalangeal joint of the thumb and distal interphalangeal joints of the fingers. Degenerative changes also present at the 1st carp al metacarpal joint. SOFT TISSUE: Normal. IMPRESSION: Degenerative changes. DATA REPOSITORY: RADIATION DOSE DELIVERED:
== END ==
LOC: DI 19:37
PROVIDERS: PCP Nurse Practitioner Family; Visit Provider Nurse Practitioner Family
DX: M79.645 Pain in left finger(s) (principal)
CPT/HCPCS: 73140

== ENCOUNTER → 2023-03-20 07:54 | Outpatient (BNVA) | payer MEDICARE, SELFPAY | PROVIDERS: PCP Nurse Practitioner Family; Referring Provider Nurse Practitioner Family; Visit Provider Student in an Organized Health Care Education/Training Program | DX: M18.12 Unilateral primary osteoarthritis of first carpometacarpal joint, left hand (principal); M72.0 Palmar fascial fibromatosis [Dupuytren]; M77.8 Other enthesopathies, not elsewhere classified | CPT/HCPCS: 20600; 99203; 99213; J1030 ==

== ENCOUNTER → 2023-05-02 03:17 | Outpatient (CLI) | payer MEDICARE, SELFPAY ==
--- NOTE | 2023-05-02 13:00 | DI.MAMMO_ITS ---
Exam(s) MAMMO SCREENING EXAM: MAMMO SCREENING CLINICAL HISTORY: Z12.31 Screening mammogram for malignant neoplasm of breast. TECHNIQUE: Bilateral full field digital CC and MLO mammographic images were obtained with 3D tomosyn thesis and utilizing computer aided detection (CAD). COMPARISON: Prior mammograms were reviewed. FINDINGS: There has been no significant change in the appearance and distribution of the fibroglandular tissue. There are no new spiculated masses nor malignant appearing microcalcification groups. There is no significant architectural distortion nor skin thickening-retraction. IMPRESSION: No radiographic evidence of malignancy. BI-RADS Category 1 - Negative Breast Density - Category B - Scattered areas of fibroglandular density Breast density Category C or D implies that the patient has dense breast tissue. Dense breast tissue can make it harder to find cancer on a mammogram. Dense breast tissue is also associated with an incr eased risk of breast cancer. This information about the result of the mammogram report was provided to the patient to raise their awareness. Use this report when you speak with the patient about their risks for breast cancer, which includes their family history. At that time, you may recommend additional screening tests (Ultrasoun d or MRI) as these tests may add significant information. A negative radiographic report should not delay biopsy if a dominant or clinically suspicious mass is present. Up to ten percent of cancers are not identified on mammography. A negative report may reinforce clinical impression. Adenosis and dense breasts may obscure an underlying neoplasm. False positive reports average 6 to 10%. Patient will receive a letter notifying them of these results.
== END ==
PROVIDERS: PCP Nurse Practitioner Family; Visit Provider Nurse Practitioner Family
DX: Z12.31 Encounter for screening mammogram for malignant neoplasm of breast (principal)
CPT/HCPCS: 77063; 77067

== ENCOUNTER 2024-05-02 01:16 | Outpatient (CLI) | payer MEDICARE, SELFPAY ==
--- NOTE | 2024-05-02 08:36 | DI.MAMMO_ITS ---
Exam(s) MAMMO SCREENING EXAM: MAMMO SCREENING CLINICAL HISTORY: SCREENING, Z12.31,FAMILY H/O BREAST CA TECHNIQUE: Bilateral full field digital CC and MLO mammographic images were obtained with 3D tomosyn thesis and utilizing computer aided detection (CAD). COMPARISON: Available for comparison. FINDINGS: Masses/Architectural Distortion: None seen. Microcalcifications: No suspicious pleomorphic-type are seen. Skin Thickening/Nipple Retraction: None. IMPRESSION: 1. No significant interval change with no specific features of malignancy noted. 2. Unless there is more urgent need, screening mammography is recommended, as per [place] [employer] guidelines. BI-RADS Category 1 - Negative Breast Density - Category B - Scattered areas of fibroglandular density Breast density category C or D implies that the patient has dense breast tissue. Dense breast tissue is very common and is not abnormal but dense breast tissue can make it harder to find cancer on a ma mmogram. Also, dense breast tissue may increase their breast cancer risk. This information about the result of the mammogram report was provided to the patient to raise their awareness. Use this report when you speak with the patient about their risks for breast cancer, which includes their family hist ory. At that time, you may recommend for more screening tests (Ultrasound or MRI) as they might be us eful based on their risk. A negative radiographic report should not delay biopsy if a dominant or clinically suspicious mass is present. Up to ten percent of cancers are not identified on mammography. A negative report may reinforce clinical impression. Adenosis and dense breasts may obscure an underlying neoplasm. False positive reports average 6 to 10%. Patient will receive a letter notifying them of these results.
== END 2024-05-02 01:36 ==
LOC: DI 01:16
PROVIDERS: PCP Nurse Practitioner Family; Visit Provider Nurse Practitioner Family
DX: Z12.31 Encounter for screening mammogram for malignant neoplasm of breast (principal); R92.323 Mammographic fibroglandular density, bilateral breasts
CPT/HCPCS: 77063; 77067